=== PATIENT | male | born 1970 | race Two or more races ===

== ENCOUNTER 2024-09-03 02:03 | Observation (INO) ==
[2024-09-03 02:33] LABS: Basophils # (auto) 0.03 K/uL (0.00-0.20); Basophils % (auto) 0.3 %; Eosinophils # (auto) 0.04 K/uL (0.00-0.50); Eosinophils % (auto) 0.4 %; Hematocrit (blood only) 45.4 % (42.0-52.0); Hemoglobin 15.4 g/dl (14.0-18.0); Immature Granulocytes # (auto) 0.05 K/uL (0.01-0.20); Immature Granulocytes % (auto) 0.6 %; Lymphocytes # (auto) 2.36 K/uL (1.20-3.40); Mean Corpuscular Hemoglobin 28.3 pg (25.0-34.0); Mean Corpuscular Hgb Conc 33.9 g/dL (32.0-36.0); Mean Corpuscular Volume 83.5 fL (80.0-100.0); Monocytes # (auto) 0.57 K/uL (0.11-0.59); Monocytes % (auto) 6.3 %; Neutrophils # (auto) 6.02 K/uL (1.40-6.50); Neutrophils % (auto) 66.4 %; Platelet Count 199 K/uL (130-400); RDW Coefficient of Variation 13.2 % (11.5-14.5); RDW Standard Deviation 40.4 fL (36.4-46.3); Red Blood Count 5.44 M/uL (4.70-6.10); White Blood Count 9.07 K/ul (4.8-10.8)
[2024-09-03 02:47] LABS: Albumin Globulin Ratio 1.3 (0.9-2); Albumin Level 4.2 gm/dl (3.4-5.0); BUN Creatinine Ratio 14.3 (10-20); Calcium 9.4 mg/dl (8.6-10.3); Creatinine Clr Calc Pharmacy 86.4 ml/min; Globulin 3.3 gm/dl (2.5-4.0); Magnesium 2.1 mg/dl (1.7-2.4); Potassium 3.9 mmol/L (3.5-5.1); Total Protein 7.5 gm/dl (6.0-8.3)
[2024-09-03 02:52] LABS: Troponin I High Sensitivity 3.1 pg/ml (0-20)
[2024-09-03 03:02] LABS: Thyroid Stimulating Hormone 2.579 uIu/ml (0.300-4.500)
[2024-09-03] MEDS: PANTOprazole 40 MG/10 ML SYR IV ONE (03:09)
[2024-09-03] MEDS: ACETAMINOPHEN 1,000 MG/100 ML VIAL IV STA (03:09)
[2024-09-03 03:14] LABS: INR 0.9 (0.9-1.1); Prothrombin Time 10.3 Seconds (9.0-12.0)
--- NOTE | 2024-09-03 04:00 | Emergency Department Note ---
Impression & Plan Abdominal pain, Transaminitis ED Provider Note ED Provider Note NAME: ADAM RICHARDSON AGE:54 SEX: Male : 1970 ARRIVES VIA: Private vehicle INFORMANT: Patient ED PROVIDER(s): Lexy Chilel DO CHIEF COMPLAINT: Abdominal pain HPI: This is a 54-year-old male presents emergency department due to concern for upper abdominal pain. Patient states over the last several months he has had intermittent episodes however they will typically resolve either spontaneously or after dose of Tylenol. He states this evening the pain began and did not improve, he took Tylenol around 930 and the pain persisted. He states it does radiate into his back. Patient states 3 years ago he did undergo EGD and colonoscopy, he was diagnosed with H. pylori and did take the full course of treatment for this. He had had no recurrent symptoms of heartburn/reflux recently. He states he has not been able to pinpoint that these episodes correlate with food. No recent change in his diet. No known sick contacts. No new medications. He denies fevers or chills, nausea or vomiting. He denies any accompanying chest pain or shortness of breath. PAST MEDICAL HISTORY:See Below PAST SURGICAL HISTORY:See Below FAMILY HISTORY:See Below SOCIAL HISTORY:See Below HOME MEDICATIONS:See Below ALLERGIES:See Below VITALS:See Below PHYSICAL EXAMINATION: GENERAL: alert, well appearing, well nourished, no distress, non-toxic EYE EXAM: normal conjunctiva, PERRL and EOM's grossly intact OROPHARYNX: no exudate, no erythema, lips, buccal mucosa, and tongue normal and mucous membranes are moist NECK: supple, no nuchal rigidity, no adenopathy, non-tender LUNGS: Clear to auscultation. Normal chest wall mechanics, no w/r/r HEART: no murmurs, S1 normal and S2 normal ABDOMEN: abdomen soft, epigastric abdominal pain with palpation, normo-active bowel sounds, no masses, no rebound or guarding. BACK: Back is symmetrical on inspection and there is no deformity, no midline tenderness, no CVA tenderness. SKIN: no rashes, petechiae, orbruising UPPER EXTREMITIES: upper extremities are grossly normal. FROM, nml pulses b/l. LOWER EXTREMITIES: No pitting edema. FROM, nml pulses b/l. NEURO EXAM: Normal sensorium, cranial nerves II-XII grossly intact, normal speech, no facial droop,nogross weakness of arms, no gross weakness of legs. Gross sensation intact. No ataxia. Vital Signs: reviewed and remarkable Differential Diagnosis: PUD, cholecystitis, pancreatitis, colitis, bowel obstruction, perforation, GI bleed, ACS, dissection, AAA, viral syndrome, as well as others were considered MEDICAL DECISION MAKING: This is a 54-year-old male presents emergency room due to concern for epigastric pain. Patient with prior intermittent episodes however typically short-lived. Episode tonight has been lasting longer and persistent despite oral Tylenol at home. He was afebrile and hemodynamically stable on arrival. Labs drawn and sent, IV established, EKG performed at bedside interpreted me and patient monitored on telemetry. After discussion of symptoms and differential diagnosis initially bedside we opted to start with an ultrasound of the right upper quadrant. Stones and sludge were noted however no definitive evidence of acute cholecystitis. After the further discussion of differential diagnosis as well as his prior surgical history, we performed a CT of the abdomen and pelvis additionally. Patient's labs reassuring with the exception of a mild transaminitis. No other evidence of acute intra-abdominal infection, bowel obstruction, mesenteric ischemia, or acute vascular pathology. Patient was given IV Tylenol and IV fentanyl as well as IV Protonix for symptomatic control. He was given gentle IV fluid hydration additionally. Case discussed with on- call RYANN covering general surgery who did come and evaluate him at bedside. They recommend admission to the hospitalist team for further evaluation of the transaminitis prior to consideration for cholecystectomy. Case discussed with the hospitalist team for additional evaluation and management. Consultation(s): 0535: Discussed with Haris Jackson PA-C with gen surg. He came to see him at bedside. 0638: Discussed with Dr. Magana, [facility] hospitalist team, for additional evaluation and management. ER Treatment Provided: See below Diagnostics Interpreted By Me: -ECG: Normal sinus at 65, normal axis, normal intervals, no acute ST/T wave changes -Cardiac Monitoring: An order was placed for continuous cardiac monitoring. The monitor shows a rate of 68 with normal sinus rhythm. -Laboratory studies: As stated above and show below. -Imaging studies: CT a/p -no perfect, no SBO Triage Nursing Note Reviewed Prior/Outside Records Reviewed Past Med/Surg History Problem List (Updated 09/03/24 @ 14:30 by Pascual Curran MD) Cholelithiasis Transaminitis (Acute) Abdominal pain (Acute) Social History Smoking Status: Never smoker Hx Alcohol Use: No Hx Substance Use: No Preferred Language: Arabic Communication Ability: Effective [employer] Manager Required: No Beliefs That Will Affect Care: None Current Living Situation: Spouse Other Information That Helps Us Care for You: No Feels Safe at Home: Yes Safety Concerns: Feels Safe At This Time Assistive Devices: None Allergies Allergies Allergy/AdvReac Type Severity Reaction Status Date / Time No Known Allergies Allergy Unverified 09/03/24 05:54 Home Meds Home Medications Medication Instructions Recorded Confirmed Centrum Adult 50 Plus See Rx Instructions .Route .COMPLEX 09/03/24 09/03/24 calcium 500 mg 1 tab PO 1XD 09/03/24 09/03/24 (carb,gluconate)-magnesium 250 mg (gluc,oxide) tablet (Calcium Magnesium) levothyroxine 50 mcg tablet 50 mcg PO 1XD 09/03/24 09/03/24 Results & Data (ED) Vital Signs Vital Signs - 24 hr 09/03/24 02:05 09/03/24 02:14 09/03/24 04:04 Temperature 36.5 C Temperature Source Temporal Artery Scan Pulse Rate 69 66 Pulse Rate [Radial] 67 Respiratory Rate 18 17 Respiratory Effort / Characteristics Non-Labored Non-Labored Spontaneous Respiratory Depth Normal Normal Respiratory Pattern Regular Blood Pressure 162/96 H Blood Pressure [Left Arm] 110/68 Blood Pressure Mean 118 Blood Pressure Mean [Left Arm] 82 Pulse Oximetry 98 94 Oxygen Delivery Method Room Air Room Air Sepsis Recent Fever Within 48 Hours No Sepsis New/Unexplained Change in Mental Status N/A Sepsis Action Taken by Nursing No Action Required 09/03/24 06:00 Temperature Temperature Source Pulse Rate Pulse Rate [Radial] 76 Respiratory Rate 17 Respiratory Effort / Characteristics Non-Labored Spontaneous Respiratory Depth Normal Respiratory Pattern Regular Blood Pressure Blood Pressure [Left Arm] 120/79 Blood Pressure Mean Blood Pressure Mean [Left Arm] 92 Pulse Oximetry 97 Oxygen Delivery Method Room Air Sepsis Recent Fever Within 48 Hours Sepsis New/Unexplained Change in Mental Status Sepsis Action Taken by Nursing Laboratory Data 09/03/24 02:17 09/03/24 02:17 Lab Results 09/03/24 Range/Units 02:17 WBC 9.07 (4.8-10.8) K/ul RBC 5.44 (4.70-6.10) M/uL Hgb 15.4 (14.0-18.0) g/dl Hct 45.4 (42.0-52.0) % MCV 83.5 (80.0-100.0) fL MCH 28.3 (25.0-34.0) pg MCHC 33.9 (32.0-36.0) g/dL RDW Std Deviation 40.4 (36.4-46.3) fL RDW Coeff of Zeeshan 13.2 (11.5-14.5) % Plt Count 199 (130-400) K/uL MPV 11.0 (9.4-12.4) fL Immature Gran % (Auto) 0.6 % Neut % (Auto) 66.4 % Lymph % (Auto) 26.0 % Victoria % (Auto) 6.3 % Eos % (Auto) 0.4 % Baso % (Auto) 0.3 % Neut # (Auto) 6.02 (1.40-6.50) K/uL Lymph # (Auto) 2.36 (1.20-3.40) K/uL Victoria # (Auto) 0.57 (0.11-0.59) K/uL Eos # (Auto) 0.04 (0.00-0.50) K/uL Baso # (Auto) 0.03 (0.00-0.20) K/uL Immature Gran # (Auto) 0.05 (0.01-0.20) K/uL PT 10.3 (9.0-12.0) Seconds INR 0.9 (0.9-1.1) Sodium 139 (136-145) mmol/L Potassium 3.9 (3.5-5.1) mmol/L Chloride 105 (98-107) mmol/L Carbon Dioxide 29 (21-32) mmol/L Anion Gap 5 (3-11) BUN 15 (6-23) mg/dl Creatinine 1.05 (0.6-1.4) mg/dl Est Cr Clr Drug Dosing 86.4 ml/min eGFR 84.35 BUN/Creatinine Ratio 14.3 (10-20) Glucose 111 H (70-99(Fasting)) mg/dl Estimat Average Glucose TNP Hemoglobin A1c TNP Hgb A1c Pathologist Com Calcium 9.4 (8.6-10.3) mg/dl Magnesium 2.1 (1.7-2.4) mg/dl Total Bilirubin 1.0 (0.2-1.0) mg/dl Direct Bilirubin 0.4 H (0-0.2) mg/dl AST 198 H (13-39) U/L ALT 136 H (7-52) U/L Alkaline Phosphatase 81 (34-104) U/L Troponin I High Sens 3.1 (0-20) pg/ml Total Protein 7.5 (6.0-8.3) gm/dl Albumin 4.2 (3.4-5.0) gm/dl Globulin 3.3 (2.5-4.0) gm/dl Albumin/Globulin Ratio 1.3 (0.9-2) Lipase 30 (11-82) U/L TSH 2.579 (0.300-4.500) uIu/ml Administered Medications Levothyroxine Sodium (Levothyroxine Sodium 50 Mcg Tablet) 50 mcg PO DAILYBB SIERRA Stop: 10/03/24 11:29 Last Admin: 09/03/24 12:19 Dose: 50 mcg Documented By: NEHEMIAS Multivitamins (Multivitamin Tab) 1 tab PO QAM SIERRA Stop: 10/03/24 08:59 Last Admin: 09/03/24 12:20 Dose: Not Given Documented By: NEHEMIAS Discontinued Medications Fentanyl Citrate (Fentanyl Citrate Pf 100 Mcg/2 Ml Vial) 50 mcg IV Q15M PRN PRN Reason: Pain Stop: 09/17/24 02:54 Last Admin: 09/03/24 04:45 Dose: 50 mcg Documented By: GONZALEZ Pantoprazole Sodium (Protonix) 40 mg in 10 mls @ 5 mls/min IV NOW ONE Stop: 09/03/24 02:20 Last Admin: 09/03/24 03:09 Dose: 5 mls/min Documented By: GONZALEZ Acetaminophen (Ofirmev) 1,000 mg in 100 mls @ 400 mls/hr IV NOW STA Stop: 09/03/24 03:08 Last Infusion: 09/03/24 03:27 Dose: Infused Documented By: Admin: 09/03/24 03:09 Dose: 400 mls/hr Documented By: GONZALEZ Sodium Chloride (Nss) 1,000 mls @ 75 mls/hr IV .[id number] ONE Stop: 09/03/24 20:49 Last Infusion: 09/04/24 00:50 Dose: Infused Documented By: Admin: 09/03/24 10:17 Dose: 75 mls/hr Documented By: Ioversol (Optiray 320 100ml) 100 ml IV ONCE ONE Stop: 09/03/24 05:30 Last Admin: 09/03/24 05:29 Dose: 93 ml Documented By: EFRAIN Imaging Data Radiologist's Impression: Abdomen Ultrasound 09/03/24 02:54 EXAM: US abdomen limited CLINICAL HISTORY: TECHNIQUE: Doppler ultrasound examination of the limited abdomen performed in real-time. COMPARISON: None. FINDINGS: Limited examination due to increased midline bowel gas. The pancreas is not visualized due to overlying bowel gas. The liver is seen of average size measuring 15.7 cm with increased parenchymal echogenicity. No intrahepatic biliary dilatation. No focal lesion seen within the liver. The gallbladder is seen distended with a large stone seen within. Mobile sludge is also noted. Gallbladder wall thickness is normal measuring 1.9 mm. Negative Jones sign. Comet tail appearance artifact along the fundal wall caused by the shaowing of the stone. The common bile duct is not dilated measuring 5.2 mm. The right kidney is seen unremarkable. No hydronephrosis or stones seen within. IMPRESSION: 1. Fatty liver infiltration. 2. Cholelithiasis with no signs of acute cholecystitis. Mobile sludge was also seen within the gallbladder. As per images focal areas of wall thickening is noted, could represent polyp. 3. Pancreas not visualized with overlying bowel gas. 4. Clinical correlation is needed. Electronically signed by Alexandro Walters 09-03-2024 05:02 AM Abdomen/Pelvis CT 09/03/24 05:14 EXAM: CT abd pelvis IV con only CLINICAL HISTORY: epigastric abd pain, hx hiatal hernia, 93 ml optiray 320 TECHNIQUE: Multiple contiguous axial images were obtained from the level of diaphragm to the pubis symphysis. This study was acquired after the IV administration of iodinated contrast material, given the patient's indications for the examination. If IV contrast material had not been administered, the likelihood of detecting abnormalities relevant to the patient's condition would have been substantially decreased. Coronal and sagittal reformatted images were generated and reviewed to improve anatomic localization and optimize lesion detection. CT scan was performed according to ALARA (as low as reasonably achievable). COMPARISON: None. FINDINGS: The visualized lung bases are clear. ABDOMEN/PELVIS: The liver is normal in size and attenuation. No focal liver lesions are seen. There is no intra or extrahepatic biliary ductal dilatation. Hepatic vasculature is patent. Gallbladder is well distended. 2.2 x 1.9 cm hyperdense lesion is noted within the body of the gallbladder. The spleen, pancreas, and adrenal glands are unremarkable. The kidneys are normal in size and attenuation. There is no hydronephrosis or perinephric fat stranding. No renal calculi or renal masses are identified. The ureters are normal in caliber and no ureteral calculi are seen. The bladder is normal in contour. No evidence of focal or diffuse bowel wall thickening or evidence of bowel obstruction is seen. The appendix is visualized in the right lower quadrant and appears within normal limits. Mild mesenteric fat stranding is noted with reactive mesenteric lymph nodes. Thickening of the gastric rugae is noted. Mild prostatomegaly is noted measuring 3.5 x 5.1 x 4.6 cm (AP x TR x CC). No adenopathy or fluid collections are seen. The aorta is normal in caliber. No aggressive appearing osseous lesions are identified. IMPRESSION: 1. Mild mesenteric fat stranding is noted with reactive mesenteric lymph nodes and mild fluid. Findings suggestive of mesenteric panniculitis. 2. Thickening of the gastric rugae is noted, suggestive of gastritis. 3. 2.2 x 1.9 cm hyperdense lesion is noted within the body of the gallbladder- This could represent calculus or polyp- for USG correlation. 4. Mild prostatomegaly is noted measuring 3.5 x 5.1 x 4.6 cm (AP x TR x CC). Electronically signed by Gómez Ingram 09-03-2024 06:19 AM Discharge Plan Visit Data Chief Complaint: Chest Pain Stated Complaint: CHEST/ABD PAIN ED Provider: Lexy Chilel Discharge Problem: Abdominal pain, Transaminitis Patient Disposition: Admitted As Inpatient Discharge Instructions Interventions: ED Discharge Assessment Last Done: 09/03/24 11:21 Discharge Problem: Abdominal pain Qualifiers: Abdominal location: upper abdomen, unspecified Qualified Code(s): R10.10 - Upper abdominal pain, unspecified
[2024-09-03] MEDS: fentaNYL citrate PF 100 MCG/2 ML VIAL IV PRN (04:45)
--- NOTE | 2024-09-03 05:03 | Ultrasound Report ---
EXAM: US abdomen limited CLINICAL HISTORY: TECHNIQUE: Doppler ultrasound examination of the limited abdomen performed in real-time. COMPARISON: None. FINDINGS: Limited examination due to increased midline bowel gas. The pancreas is not visualized due to overlying bowel gas. The liver is seen of average size measuring 15.7 cm with increased parenchymal echogenicity. No intrahepatic biliary dilatation. No focal lesion seen within the liver. The gallbladder is seen distended with a large stone seen within. Mobile sludge is also noted. Gallbladder wall thickness is normal measuring 1.9 mm. Negative Jones sign. Comet tail appearance artifact along the fundal wall caused by the shaowing of the stone. The common bile duct is not dilated measuring 5.2 mm. The right kidney is seen unremarkable. No hydronephrosis or stones seen within. IMPRESSION: 1. Fatty liver infiltration. 2. Cholelithiasis with no signs of acute cholecystitis. Mobile sludge was also seen within the gallbladder. As per images focal areas of wall thickening is noted, could represent polyp. 3. Pancreas not visualized with overlying bowel gas. 4. Clinical correlation is needed. Electronically signed by Alexandro Walters 09-03-2024 05:02 AM
[2024-09-03] MEDS: OPTIRAY 320 100ml IV ONE (05:29)
--- NOTE | 2024-09-03 05:58 | Surgery Consultation ---
Date of Consultation September 03, 2024 Assessment & Plan (1) Transaminitis: I discussed with the treating emergency room physician the patient is being admitted on the hospital service. From surgery perspective we recommend the following: Provide analgesics Provide antiemetics Implement n.p.o. status Would recommend repeating the LFTs later this morning to see if they are resolving or worsening. If the patient has worsening LFTs consideration should be given to obtaining a GI consult The patient has resolving LFTs will then have discussed with the patient possibility of cholecystectomy whether this should be pursued on an inpatient or outpatient/semielective basis Additional recommendations will be forthcoming based on his clinical course as unfolds Supervising Physician Co-Signing Physician Notes Patient discussed with Haris Jackson overnight, labs and imaging reviewed, agree with above. Admitted with cholelithiasis with some mild elevation in his LFTs. For full assessment and plan, see today's progress note. History of Present Illness Reason for Consultation: Abdominal pain History of Present Illness This is a 54-year-old male who presented emergency department secondary to abdominal pain. Patient notes that for the past year he has been having some episodes of epigastric pain and right upper quadrant pain after eating. He notes over the past 2 to 3 days this has increased in frequency and severity prompting his visit to the emergency department. He has had nausea without vomiting. He denies any fevers, shakes, or chills. No other modifying factors are noted to his pain. He has had prior surgery in the form of a laparoscopic Kristen fundoplication. Since arrival to hospital patient has had labs and imaging which I independent reviewed. A gallbladder ultrasound that showed the patient had a distended gallbladder with a large gallstone along with some mobile sludge noted. There is no gallbladder wall thickening. There is no biliary ductal dilatation. The interpreting radiologist did not feel that this represented cholecystitis. Labs included CBC white blood cell count, hemoglobin, hematocrit, and platelet count were normal. Coagulation studies were normal. Chemistry profile showed sodium and potassium as well as the BUN and creatinine were normal. There is no elevation of the bilirubin or alkaline phosphatase but the AST and ALT were elevated at 198 and 136. There is no elevation of lipase. At the time of my interview he was resting comfortably in bed and he was in no distress. Allergies Allergy/AdvReac Type Severity Reaction Status Date / Time No Known Allergies Allergy Unverified 09/03/24 05:54 Home Medications Medication Instructions Recorded Confirmed Type Centrum Adult 50 Plus See Rx Instructions .Route .COMPLEX 09/03/24 09/03/24 History calcium 500 mg 1 tab PO 1XD 09/03/24 09/03/24 History (carb,gluconate)-magnesium 250 mg (gluc,oxide) tablet (Calcium Magnesium) levothyroxine 50 mcg tablet 50 mcg PO 1XD 09/03/24 09/03/24 History Patient History Social History Smoking Status: Never smoker Hx Alcohol Use: No Hx Substance Use: No Preferred Language: Congolese Communication Ability: Effective 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 Beliefs That Will Affect Care: None Current Living Situation: Spouse Other Information That Helps Us Care for You: No Feels Safe at Home: Yes Safety Concerns: Feels Safe At This Time Assistive Devices: None Review of Systems Review of Systems: All systems reviewed & are unremarkable except as noted in HPI & below Physical Exam Constitutional: WD/WN, vitals as above Eyes: + anicteric sclerae ENMT: Ears: no hearing impairment and no external ear abnormality No sublingual jaundice noted Neck: trachea midline Respiratory: normal respiratory effort, lungs clear to auscultation Cardiovascular: Rate/Rhythm: regular rate and regular rhythm Gastrointestinal (Abdomen): At the time of my exam patient's abdomen is soft and nondistended. There is minimal to no pain with palpation there is no rebound tenderness or guarding Musculoskeletal: No calf tenderness Skin: no rashes Neurologic: moves all extremities Psychiatric: A+Ox3, euthymic affect Results & Data Vital Signs (Past 12 Hours) Vital Signs Temp Pulse Pulse Resp BP BP Pulse Ox 09/03/24 04:04 67 17 110/68 94 09/03/24 02:14 66 09/03/24 02:05 36.5 C 69 18 162/96 H 98 O2 Del Method 09/03/24 04:04 Room Air 09/03/24 02:14 09/03/24 02:05 Room Air PG Care Time/CCT Total # of Minutes Spent Total Time Spent with Patient: Total time spent is greater than 50% in coordination of care (as documented) at patient's floor/unit and/or counseling patient: Coding Level of Care Code 92528 IN/OBS CONSULT LVL 5,80M Diagnoses Transaminitis R74.01
--- NOTE | 2024-09-03 06:19 | CT Scan Report ---
EXAM: CT abd pelvis IV con only CLINICAL HISTORY: epigastric abd pain, hx hiatal hernia, 93 ml optiray 320 TECHNIQUE: Multiple contiguous axial images were obtained from the level of diaphragm to the pubis symphysis. This study was acquired after the IV administration of iodinated contrast material, given the patient's indications for the examination. If IV contrast material had not been administered, the likelihood of detecting abnormalities relevant to the patient's condition would have been substantially decreased. Coronal and sagittal reformatted images were generated and reviewed to improve anatomic localization and optimize lesion detection. CT scan was performed according to ALARA (as low as reasonably achievable). COMPARISON: None. FINDINGS: The visualized lung bases are clear. ABDOMEN/PELVIS: The liver is normal in size and attenuation. No focal liver lesions are seen. There is no intra or extrahepatic biliary ductal dilatation. Hepatic vasculature is patent. Gallbladder is well distended. 2.2 x 1.9 cm hyperdense lesion is noted within the body of the gallbladder. The spleen, pancreas, and adrenal glands are unremarkable. The kidneys are normal in size and attenuation. There is no hydronephrosis or perinephric fat stranding. No renal calculi or renal masses are identified. The ureters are normal in caliber and no ureteral calculi are seen. The bladder is normal in contour. No evidence of focal or diffuse bowel wall thickening or evidence of bowel obstruction is seen. The appendix is visualized in the right lower quadrant and appears within normal limits. Mild mesenteric fat stranding is noted with reactive mesenteric lymph nodes. Thickening of the gastric rugae is noted. Mild prostatomegaly is noted measuring 3.5 x 5.1 x 4.6 cm (AP x TR x CC). No adenopathy or fluid collections are seen. The aorta is normal in caliber. No aggressive appearing osseous lesions are identified. IMPRESSION: 1. Mild mesenteric fat stranding is noted with reactive mesenteric lymph nodes and mild fluid. Findings suggestive of mesenteric panniculitis. 2. Thickening of the gastric rugae is noted, suggestive of gastritis. 3. 2.2 x 1.9 cm hyperdense lesion is noted within the body of the gallbladder- This could represent calculus or polyp- for USG correlation. 4. Mild prostatomegaly is noted measuring 3.5 x 5.1 x 4.6 cm (AP x TR x CC). Electronically signed by Gómez Ingram 09-03-2024 06:19 AM
--- NOTE | 2024-09-03 07:21 | History & Physical Report ---
Date of Service September 03, 2024 Assessment & Plan (1) Abdominal pain: Plan: Biliary colic versus cholecystitis with associated transaminitis No sepsis for now Hypothyroidism, euthyroid as of today's TSH Hyperglycemia rule out DM OBS [facility] General Surgery consult (Patient already seen at the ED by provider who recommends trending LFTs and GI consult if with further elevation.) Recheck LFTs at 10 AM Further management contingent on LFTs trend N.p.o. for now Check hemoglobin A1c DVT prophylaxis. SCDs re: possible procedure Full code Patient requesting for selective testing given out of state insurance concerns. Text document was generated using amazingtunes recognition software. It may contain grammatical or spelling errors. Kindly contact undersigned for clarification of any documentation item in question. History of Present Illness Chief Complaint: Abdominal pain Primary Care Provider: Dr. Rebecca Olivera from [place], [place] History obtained from patient and records. Patient is a resident of [place], [place] who has been in town the last 10 days to visit his daughter who is a [employer] grad student. Medical history significant for hypothyroidism. One year history of intermittent right upper quadrant pain usually worse after eating and fatty food intake. No fever no chills. Symptoms spontaneously resolving. Different from heartburn. No consultations done. Symptoms more frequent of late as per patient. Last night, episode more intense and protracted. No fever, no chills. No chest pain, no SOB. Patient consulted ER for evaluation. 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 [place] Allergies Allergy/AdvReac Type Severity Reaction Status Date / Time No Known Allergies Allergy Unverified 09/03/24 05:54 Home Medications Medication Instructions Recorded Confirmed Type Centrum Adult 50 Plus See Rx Instructions .Route .COMPLEX 09/03/24 09/03/24 History calcium 500 mg 1 tab PO 1XD 09/03/24 09/03/24 History (carb,gluconate)-magnesium 250 mg (gluc,oxide) tablet (Calcium Magnesium) levothyroxine 50 mcg tablet 50 mcg PO 1XD 09/03/24 09/03/24 History Past Med/Surg History Problem List Transaminitis (Acute) Abdominal pain (Acute) Social History Smoking Status: Never smoker Preferred Language: Canadian Feels Safe at Home: Yes Review of Systems Review of Systems: As per HPI, all other systems reviewed and negative Physical Exam Physical Exam: GENERAL: Comfortable, obese, pleasant, no respiratory distress SKIN: Normal color, warm HEENT: Alopecia, [place] palpebral conjunctivae, no ptosis, dry buccal mucosa NECK : Supple, no tenderness CHEST : CTA, no tenderness HEART : RRR, no obvious murmurs ABDOMEN: Some distention, epigastric tenderness EXTREMITIES : No LE swelling/tenderness, no other conspicuous deformities noted NEUROLOGIC : Coherent, no facial asymmetry, no other gross focality Results & Data Results & Data Vital Signs (Past 12 Hours) Vital Signs Temp Pulse Pulse Resp BP BP Pulse Ox 09/03/24 06:00 76 17 120/79 97 09/03/24 04:04 67 17 110/68 94 09/03/24 02:14 66 09/03/24 02:05 36.5 C 69 18 162/96 H 98 O2 Del Method 09/03/24 06:00 Room Air 09/03/24 04:04 Room Air 09/03/24 02:14 09/03/24 02:05 Room Air Laboratory Results Laboratory Results WBC 9.07 K/ul (4.8-10.8) 09/03/24 02:17 RBC 5.44 M/uL (4.70-6.10) 09/03/24 02:17 Hgb 15.4 g/dl (14.0-18.0) 09/03/24 02:17 Hct 45.4 % (42.0-52.0) 09/03/24 02:17 MCV 83.5 fL (80.0-100.0) 09/03/24 02:17 MCH 28.3 pg (25.0-34.0) 09/03/24 02:17 MCHC 33.9 g/dL (32.0-36.0) 09/03/24 02:17 RDW Std Deviation 40.4 fL (36.4-46.3) 09/03/24 02:17 RDW Coeff of Zeeshan 13.2 % (11.5-14.5) 09/03/24 02:17 Plt Count 199 K/uL (130-400) 09/03/24 02:17 MPV 11.0 fL (9.4-12.4) 09/03/24 02:17 Immature Gran % (Auto) 0.6 % 09/03/24 02:17 Neut % (Auto) 66.4 % 09/03/24 02:17 Lymph % (Auto) 26.0 % 09/03/24 02:17 Emmet % (Auto) 6.3 % 09/03/24 02:17 Eos % (Auto) 0.4 % 09/03/24 02:17 Baso % (Auto) 0.3 % 09/03/24 02:17 Neut # (Auto) 6.02 K/uL (1.40-6.50) 09/03/24 02:17 Lymph # (Auto) 2.36 K/uL (1.20-3.40) 09/03/24 02:17 Emmet # (Auto) 0.57 K/uL (0.11-0.59) 09/03/24 02:17 Eos # (Auto) 0.04 K/uL (0.00-0.50) 09/03/24 02:17 Baso # (Auto) 0.03 K/uL (0.00-0.20) 09/03/24 02:17 Immature Gran # (Auto) 0.05 K/uL (0.01-0.20) 09/03/24 02:17 PT 10.3 Seconds (9.0-12.0) 09/03/24 02:17 INR 0.9 (0.9-1.1) 09/03/24 02:17 Sodium 139 mmol/L (136-145) 09/03/24 02:17 Potassium 3.9 mmol/L (3.5-5.1) 09/03/24 02:17 Chloride 105 mmol/L (98-107) 09/03/24 02:17 Carbon Dioxide 29 mmol/L (21-32) 09/03/24 02:17 Anion Gap 5 (3-11) 09/03/24 02:17 BUN 15 mg/dl (6-23) 09/03/24 02:17 Creatinine 1.05 mg/dl (0.6-1.4) 09/03/24 02:17 Est Cr Clr Drug Dosing 86.4 ml/min 09/03/24 02:17 eGFR 84.35 09/03/24 02:17 BUN/Creatinine Ratio 14.3 (10-20) 09/03/24 02:17 Glucose 111 mg/dl (70-99(Fasting)) H 09/03/24 02:17 Calcium 9.4 mg/dl (8.6-10.3) 09/03/24 02:17 Magnesium 2.1 mg/dl (1.7-2.4) 09/03/24 02:17 Total Bilirubin 1.0 mg/dl (0.2-1.0) 09/03/24 02:17 AST 198 U/L (13-39) H 09/03/24 02:17 ALT 136 U/L (7-52) H 09/03/24 02:17 Alkaline Phosphatase 81 U/L (34-104) 09/03/24 02:17 Troponin I High Sens 3.1 pg/ml (0-20) 09/03/24 02:17 Total Protein 7.5 gm/dl (6.0-8.3) 09/03/24 02:17 Albumin 4.2 gm/dl (3.4-5.0) 09/03/24 02:17 Globulin 3.3 gm/dl (2.5-4.0) 09/03/24 02:17 Albumin/Globulin Ratio 1.3 (0.9-2) 09/03/24 02:17 Lipase 30 U/L (11-82) 09/03/24 02:17 TSH 2.579 uIu/ml (0.300-4.500) 09/03/24 02:17 Impressions Abdomen Ultrasound 09/03/24 02:54 EXAM: US abdomen limited CLINICAL HISTORY: TECHNIQUE: Doppler ultrasound examination of the limited abdomen performed in real-time. COMPARISON: None. FINDINGS: Limited examination due to increased midline bowel gas. The pancreas is not visualized due to overlying bowel gas. The liver is seen of average size measuring 15.7 cm with increased parenchymal echogenicity. No intrahepatic biliary dilatation. No focal lesion seen within the liver. The gallbladder is seen distended with a large stone seen within. Mobile sludge is also noted. Gallbladder wall thickness is normal measuring 1.9 mm. Negative Jones sign. Comet tail appearance artifact along the fundal wall caused by the shaowing of the stone. The common bile duct is not dilated measuring 5.2 mm. The right kidney is seen unremarkable. No hydronephrosis or stones seen within. IMPRESSION: 1. Fatty liver infiltration. 2. Cholelithiasis with no signs of acute cholecystitis. Mobile sludge was also seen within the gallbladder. As per images focal areas of wall thickening is noted, could represent polyp. 3. Pancreas not visualized with overlying bowel gas. 4. Clinical correlation is needed. Electronically signed by Alexandro Walters 09-03-2024 05:02 AM Abdomen/Pelvis CT 09/03/24 05:14 EXAM: CT abd pelvis IV con only CLINICAL HISTORY: epigastric abd pain, hx hiatal hernia, 93 ml optiray 320 TECHNIQUE: Multiple contiguous axial images were obtained from the level of diaphragm to the pubis symphysis. This study was acquired after the IV administration of iodinated contrast material, given the patient's indications for the examination. If IV contrast material had not been administered, the likelihood of detecting abnormalities relevant to the patient's condition would have been substantially decreased. Coronal and sagittal reformatted images were generated and reviewed to improve anatomic localization and optimize lesion detection. CT scan was performed according to ALARA (as low as reasonably achievable). COMPARISON: None. FINDINGS: The visualized lung bases are clear. ABDOMEN/PELVIS: The liver is normal in size and attenuation. No focal liver lesions are seen. There is no intra or extrahepatic biliary ductal dilatation. Hepatic vasculature is patent. Gallbladder is well distended. 2.2 x 1.9 cm hyperdense lesion is noted within the body of the gallbladder. The spleen, pancreas, and adrenal glands are unremarkable. The kidneys are normal in size and attenuation. There is no hydronephrosis or perinephric fat stranding. No renal calculi or renal masses are identified. The ureters are normal in caliber and no ureteral calculi are seen. The bladder is normal in contour. No evidence of focal or diffuse bowel wall thickening or evidence of bowel obstruction is seen. The appendix is visualized in the right lower quadrant and appears within normal limits. Mild mesenteric fat stranding is noted with reactive mesenteric lymph nodes. Thickening of the gastric rugae is noted. Mild prostatomegaly is noted measuring 3.5 x 5.1 x 4.6 cm (AP x TR x CC). No adenopathy or fluid collections are seen. The aorta is normal in caliber. No aggressive appearing osseous lesions are identified. IMPRESSION: 1. Mild mesenteric fat stranding is noted with reactive mesenteric lymph nodes and mild fluid. Findings suggestive of mesenteric panniculitis. 2. Thickening of the gastric rugae is noted, suggestive of gastritis. 3. 2.2 x 1.9 cm hyperdense lesion is noted within the body of the gallbladder- This could represent calculus or polyp- for USG correlation. 4. Mild prostatomegaly is noted measuring 3.5 x 5.1 x 4.6 cm (AP x TR x CC). Electronically signed by Gómez Ingram 09-03-2024 06:19 AM Diagnostic Findings EKG as per my interpretation :Rate 65, NSR, normal axis, no ischemia
[2024-09-03] MEDS ORDERED: LORazepam 0.5 MG TAB PO PRN (07:30)
[2024-09-03] MEDS ORDERED: MoRPHine SULFATE 4 MG/ML 1 ML CARP\\VIAL IV PRN ×2 (07:30→08:33)
[2024-09-03] MEDS ORDERED: PROMETHAZINE 6.25 MG/50.25 ML BAG IV PRN (07:30)
--- NOTE | 2024-09-03 07:36 | Electrocardiogram Report ---
Test Reason : Blood Pressure : */* mmHG Vent. Rate : 65 BPM Atrial Rate : 65 BPM P-R Int : 156 ms QRS Dur : 76 ms QT Int : 380 ms P-R-T Axes : 57 59 48 degrees QTcB Int : 395 ms Normal sinus rhythm Normal ECG No previous ECGs available Confirmed by Jose Webb ([id number]) on 09/03/2024 7:35:55 AM Referred By: REFERRED SELF Confirmed By: Jose Webb
[2024-09-03] MEDS: SODIUM CHLORIDE 0.9% 1,000 ML IV ONE (10:17)
[2024-09-03 10:24] LABS: Bilirubin Direct 0.4 mg/dl (0-0.2)
[2024-09-03 11:14] LABS: Albumin Level 3.9 gm/dl (3.4-5.0); Bilirubin Direct 0.2 mg/dl (0-0.2); Bilirubin,Total 1.1 mg/dl (0.2-1.0)
[2024-09-03] MEDS: LEVOTHYROXINE SODIUM 50 MCG TABLET PO SCH (12:19)
--- NOTE | 2024-09-03 12:19 | Surgery Progress Note ---
Date of Service September 03, 2024 Assessment & Plan (1) Transaminitis: Plan: Patient here with abdominal pain and findings of cholelithiasis/mobile sludge on imaging. No concern for cholecystitis noted, but pt did present with slightly elevated transaminases WBC 9, LFTs rechecked later this AM show Tb 1.1 (1), AST 330 (198), ALT 351 (136), Db 0.2 (0.4). Vital signs are stable US showed a non-dilated common bile duct Patient tender in epigastric region Discussed options with patient regarding obtaining an MRCP (which at the earliest cannot be performed until 7pm tonight per radiology) vs. consideration of lap leanna today and trend LFTs tomorrows At this time pt opting for cholecystectomy with trending of labs post op. will tentatively add patient on to the OR schedule. will discuss with dr. mckay if LFTs up again tomorrow will need MRCP and GI consideration of ercp (2) Cholelithiasis: Admission and Anticipated Discharge Date Admission Date: September 03, 2024 Supervising Physician Co-Signing Physician Notes Patient seen and examined, labs reviewed, agree with above. Admitted with cholelithiasis with large gallstone along with some mild elevation in his LFTs. After admission his labs were repeated and his bilirubin was up to 1.1 his AST and ALT were up slightly. After discussion of his options, the patient elected for MRCP which will be performed this evening. He is send we have been placed on the OR schedule for tomorrow for robotic cholecystectomy. If the MRCP is positive then he would need to be transferred for ERCP. If the MRCP is negative he may have clear liquids, n.p.o. after midnight Subjective Patient reports ongoing intermittent epigastric pain. No n/v. otherwise doing fine. Physical Exam Physical Exam: awake/alert, no distress Gastrointestinal (Abdomen): Percussion/Palpation: + abdomen tender (epigastric discomfort to palpation ) and abdomen soft Results & Data Vital Signs (Past 12 Hours) Vital Signs Temp Pulse Pulse Resp BP BP Pulse Ox 09/03/24 11:21 63 17 122/78 96 09/03/24 10:16 60 16 125/78 96 09/03/24 06:00 76 17 120/79 97 09/03/24 04:04 67 17 110/68 94 11/20/24 02:14 66 09/03/24 02:05 97.7 F 69 18 162/96 H 98 O2 Del Method 09/03/24 11:21 Room Air 09/03/24 10:16 Room Air 09/03/24 06:00 Room Air 09/03/24 04:04 Room Air 09/03/24 02:14 09/03/24 02:05 Room Air PG Care Time/CCT Total # of Minutes Spent Total Time Spent with Patient: Total time spent is greater than 50% in coordination of care (as documented) at patient's floor/unit and/or counseling patient: Coding Level of Care Code 50377 SUB INP/OBS CARE 11/08MIN Diagnoses Transaminitis R74.01 Cholelithiasis K80.20
[2024-09-03] MEDS: MULTIVITAMIN TAB PO SCH (12:20)
--- NOTE | 2024-09-03 14:24 | Gastrointestinal Consultation ---
Date of Consultation September 03, 2024 Assessment & Plan (1) Cholelithiasis: (2) Transaminitis: (3) Abdominal pain: Symptoms are suggestive of symptomatic gallstones. Mild elevation of transaminases with nearly normal bilirubin and normal diameter common bile duct indicate low probability of choledocholithiasis. MRCP is ordered. Cholecystectomy scheduled for tomorrow. If MRCP demonstrates choledocholithiasis the patient will need to be transferred for ERCP. History of Present Illness Reason for Consultation: Abdominal pain, gallstones, elevated liver function test. Attending Physician: Estevan Oglesby MD History of Present Illness Recurrent upper abdominal pain. Last night admitted after sudden onset of upper abdominal pain that radiated to back. The pain started around 7 PM. He checked into the emergency room. He had nausea but no vomiting. Denies chills, fever, jaundice, dark urine. In the preceding weeks the patient had of epigastric/right upper quadrant pain which would last between 15 and 30 minutes. Abdominal ultrasound showed gallstones. Common bile duct measured 5.2 mm in diameter. Liver function test showed mild elevation of transaminases: AST/ALT 330/351, total bilirubin 1.1. Allergies Allergy/AdvReac Type Severity Reaction Status Date / Time No Known Allergies Allergy Unverified 09/03/24 05:54 Home Medications Medication Instructions Recorded Confirmed Type Centrum Adult 50 Plus See Rx Instructions .Route .COMPLEX 09/03/24 09/03/24 History calcium 500 mg 1 tab PO 1XD 09/03/24 09/03/24 History (carb,gluconate)-magnesium 250 mg (gluc,oxide) tablet (Calcium Magnesium) levothyroxine 50 mcg tablet 50 mcg PO 1XD 09/03/24 09/03/24 History Patient History Social History Smoking Status: Never smoker Hx Alcohol Use: No Hx Substance Use: No Preferred Language: Welsh Communication Ability: Effective Stripe Matcher Required: No Beliefs That Will Affect Care: None Current Living Situation: Spouse Other Information That Helps Us Care for You: No Feels Safe at Home: Yes Safety Concerns: Feels Safe At This Time Assistive Devices: None Review of Systems Review of Systems: Constitutional: Denies weight loss, chills, fever, fatigue. Respiratory: Denies cough, denies shortness of breath. Cardiovascular: Denies chest pain and palpitations. Gastrointestinal: As per history of present illness. Physical Exam Physical Exam: Constitutional: WD/WN, vitals as above Respiratory: normal respiratory effort, lungs clear to auscultation Cardiovascular: RRR, no murmur, no edema Gastrointestinal (Abdomen): normal bowel sounds, soft, mild upper abdominal tenderness. No hepatosplenomegaly. Neurological: Oriented x 3, grossly no focal abnormalities, speech is intact. Results & Data Vital Signs (Past 12 Hours) Vital Signs Temp Pulse Pulse Pulse Resp BP BP 09/03/24 13:30 36.5 C 60 18 09/03/24 12:57 59 L 16 09/03/24 11:21 63 17 122/78 09/03/24 10:16 60 16 125/78 09/03/24 06:00 76 17 120/79 09/03/24 04:04 67 17 110/68 BP Pulse Ox O2 Del Method 09/03/24 13:30 125/78 96 Room Air 09/03/24 12:57 126/78 98 Room Air 09/03/24 11:21 96 Room Air 09/03/24 10:16 96 Room Air 09/03/24 06:00 97 Room Air 09/03/24 04:04 94 Room Air PG Care Time/CCT Total # of Minutes Spent Total Time Spent with Patient: Total time spent is greater than 50% in coordination of care (as documented) at patient's floor/unit and/or counseling patient: Coding Level of Care Code 97977 IN/OBS CONSULT LVL 3,45M Diagnoses Cholelithiasis K80.20 Cholelithiasis location: gallbladder Cholecystitis presence: without cholecystitis Transaminitis R74.01 Pain of upper abdomen R10.10 Abdominal location: upper abdomen, unspecified (1) Cholelithiasis Cholelithiasis location: gallbladder Cholecystitis presence: without cholecystitis (3) Abdominal pain Abdominal location: upper abdomen, unspecified Qualified Code(s): R10.10 - Upper abdominal pain, unspecified
--- NOTE | 2024-09-03 14:28 | Communication Note ---
Date of Service: September 03, 2024 Patient seen and examined at bedside. He is comfortable; not in distress. He reports that the pain has resolved with IV morphine Vital signs are stable and he is afebrile. On physical examination; Constitutional: Alert oriented x 3; not in distress. Respiratory: Bilateral vesicular breath sound. Cardiovascular: RRR, no murmur, no edema Vessels: no JVD or carotid bruit Chest: normal inspection of chest Abdomen: Mild tenderness in right upper quadrant. Bowel sound present. Musculoskeletal: no cyanosis or clubbing, extremities motor strength 5/5 Skin: no rashes, warm and dry normal turgor Neurologic: PERRL, EOMI, accommodation nl, no face palsy, no dysarthria CN's II- XI intact bilaterally and moves all extremities Psychiatric: A+Ox3, euthymic affect Assessment/plan Biliary colic Elevated liver enzymes Patient presented with intermittent abdominal pain on right upper quadrant and epigastric region Gallbladder after ultrasound showed cholelithiasis with no signs of acute cholecystitis. CT abdomen pelvis showed 2.2 and 1.9 hypodense lesion within the body of gallbladder; could be calculus/polyp. AST/ALT elevated with total bilirubin of 1.1. Surgery on board; plan to obtain MRCP today. Possible laparoscopic cholecystectomy. GI consulted as per recommendation by surgery for elevated liver enzymes Hypothyroidismcontinue levothyroxine History of hiatal herniastarted on Protonix Please note the above document was generated using voice recognition software. It may contain grammatical, syntax or spelling errors. Any formal questions or concerns about the content, text or information contained within the body of this dictation should be directly addressed to the provider for clarification
--- NOTE | 2024-09-03 20:11 | Magnetic Resonance Report ---
Exam(s): MRI MRCP EXAM: MR Abdomen Without Intravenous Contrast, MRCP Protocol CLINICAL HISTORY: Reason for exam: elevated LFTs. TECHNIQUE: Multiplanar magnetic resonance images of the abdomen without intravenous contrast using MRCP protocol. COMPARISON: CT abdomen and pelvis, Gallbladder ultrasound 09/03/24 FINDINGS: Lung bases appear clear. There is cholelithiasis and mild gallbladder sludge without gallbladder wall thickening or pericholecystic inflammatory change. There is no biliary dilatation. Common bile duct measures 4 mm. There is no evidence of choledocholithiasis. Liver, spleen, pancreas, adrenal glands, and kidneys are unremarkable. 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 Aorta is normal in caliber. Bowel gas pattern is nonobstructive. Skeleton appears unremarkable. IMPRESSION: 1. Cholelithiasis and mild gallbladder sludge without findings of acute cholecystitis, biliary dilatation, or choledocholithiasis. 2. 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 Electronically signed by: Chio Sterling M.D. 09/03/24 20:09 PM
[2024-09-04 05:27] LABS: EAG mg/dl 111 mg/dL; EAG mmol/L 6.2 mmol/L; HA1C 5.5 (<5.7)
[2024-09-04] MEDS ORDERED: GLYCOPYRROLATE 0.2 MG/ML VIAL ONE (07:13)
[2024-09-04] MEDS ORDERED: NEOSTIGMINE METHYLSULFATE 1 MG/ML 10ML VIAL ONE (07:13)
[2024-09-04] MEDS ORDERED: ONDANSETRON INJ 2 MG/ML 2 ML VIAL ONE (07:13)
[2024-09-04] MEDS ORDERED: PROPOFOL IV EMULSION 10 MG/ML 20 ML VIAL IV ONE (07:13)
[2024-09-04] MEDS ORDERED: DEXAMETHASONE SOD INJ 4 MG/ML VIAL ONE (07:13)
[2024-09-04] MEDS ORDERED: ROCURONIUM BROMIDE 10 MG/ML 5 ML VIAL IV ONE (07:13)
[2024-09-04] MEDS ORDERED: LIDOCAINE 2% 2 ML VIAL/AMP(20MG/ML) INFIL ONE (07:13)
[2024-09-04] MEDS ORDERED: fentaNYL citrate PF 100 MCG/2 ML VIAL ONE ×2 (07:14)
[2024-09-04] MEDS ORDERED: MIDAZOLAM HCL 1 MG/ML 2ML VIAL ONE (07:14)
--- NOTE | 2024-09-04 07:15 | Anesthesiology Consultation ---
Date of Service September 04, 2024 History Surgery Operation Date: 09/04/24 08:30 Proposed Procedures p Robotic Laparoscopic Cholecystectomy - Jackson Alas, , FACS Height/Weight Height: 5 ft 6.93 in Weight: 91 kg Allergies Allergy/AdvReac Type Severity Reaction Status Date / Time No Known Allergies Allergy Unverified 09/03/24 05:54 Medications Home Medications Medication Instructions Recorded Confirmed Last Taken Centrum Adult 50 Plus See Rx Instructions .Route .COMPLEX 09/03/24 09/03/24 1 Day Ago ~09/02/24 calcium 500 mg 1 tab PO 1XD 09/03/24 09/03/24 1 Day Ago (carb,gluconate)-magnesium 250 mg ~09/02/24 (gluc,oxide) tablet (Calcium Magnesium) levothyroxine 50 mcg tablet 50 mcg PO 1XD 09/03/24 09/03/24 1 Day Ago ~09/02/24 Active Medications Generic Name Dose Route Start Last Admin Trade Name Dreq PRN Reason Stop Dose Admin Levothyroxine Sodium 50 mcg 09/03/24 11:30 09/04/24 07:00 Levothyroxine Sodium 50 Mcg Tablet PO 10/03/24 11:29 50 mcg DAILYBB SIERRA Administration Multivitamins 1 tab 09/03/24 09:00 09/04/24 07:17 Multivitamin Tab PO 10/03/24 08:59 Not Given QAM SIERRA Pantoprazole Sodium 40 mg 09/04/24 09:00 09/04/24 07:17 Pantoprazole 40 Mg Tab PO 10/04/24 08:59 Not Given QAM SIERRA NPO Date Last Intake of Fluids: 09/03/24 Time Last Intake of Fluids: 23:00 Last Intake of Fluids Comment: sip of water with Synthroid this AM Date Last Intake of Solids: 09/03/24 Time Last Intake of Solids: 19:00 Social History Smoking Status: Never smoker Hx Alcohol Use: No Hx Substance Use: No Physical Exam Vital Signs Last Vital Signs Temp 36.7 C 09/04/24 07:43 Pulse 70 09/04/24 07:43 Resp 20 09/04/24 07:43 BP 110/76 09/04/24 07:43 Pulse Ox 96 09/04/24 07:43 O2 Del Method Room Air 09/04/24 07:43 Testing Laboratory Results 09/03/24 02:17 09/03/24 02:17 PT 10.3 Seconds (9.0-12.0) 09/03/24 02:17 INR 0.9 (0.9-1.1) 09/03/24 02:17 Hemoglobin A1c 5.5 (<5.7) 09/03/24 02:17 Hemoglobin A1c TNP 09/03/24 02:17 Electrocardiogram Date: 09/03/24 Normal sinus rhythm Normal ECG No previous ECGs available Confirmed by Jose Webb ([id number]) on 09/03/2024 7:35:55 AM
[2024-09-04] MEDS: PANTOprazole 40 MG TAB PO SCH (07:17)
--- NOTE | 2024-09-04 07:38 | Surgery Progress Note ---
Date of Service September 04, 2024 Assessment & Plan (1) Cholelithiasis: Plan: Cholelithiasis with suspected cholecystitis, MRCP negative for choledocholithiasis. Labs pending this morning plan for robotic assisted laparoscopic cholecystectomy with possible cho langiogram risks discussed to include but not limited to bleeding, infection, retained stone, bile leak, open surgery, damage to surrounding structures including bile duct, need for future or more extensive surgery, failure to treat symptoms, and risks of anesthesia. (2) Transaminitis: Admission and Anticipated Discharge Date Admission Date: September 03, 2024 Subjective Admitted with cholelithiasis with mild elevation in his transaminitis, MRCP negative yesterday. Still had pain yesterday Physical Exam Physical Exam: awake/alert, no distress Gastrointestinal (Abdomen): Percussion/Palpation: + abdomen tender (epigastric discomfort to palpation ) and abdomen soft Results & Data Vital Signs (Past 12 Hours) Vital Signs Temp Pulse Resp BP Pulse Ox O2 Del Method 09/03/24 19:44 36.6 C 65 18 123/79 94 Room Air Diagnostic Findings Cholangiopancreatography MRI 09/03/24 13:00 Exam(s): MRI MRCP EXAM: MR Abdomen Without Intravenous Contrast, MRCP Protocol CLINICAL HISTORY: Reason for exam: elevated LFTs. TECHNIQUE: Multiplanar magnetic resonance images of the abdomen without intravenous contrast using MRCP protocol. COMPARISON: CT abdomen and pelvis, Gallbladder ultrasound 09/03/24 FINDINGS: Lung bases appear clear. There is cholelithiasis and mild gallbladder sludge without gallbladder wall thickening or pericholecystic inflammatory change. There is no biliary dilatation. Common bile duct measures 4 mm. There is no evidence of choledocholithiasis. Liver, spleen, pancreas, adrenal glands, and kidneys are unremarkable. 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 Aorta is normal in caliber. Bowel gas pattern is nonobstructive. Skeleton appears unremarkable. IMPRESSION: 1. Cholelithiasis and mild gallbladder sludge without findings of acute cholecystitis, biliary dilatation, or choledocholithiasis. 2. 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 Electronically signed by: Chio Sterling M.D. 09/03/24 20:09 PM PG Care Time/CCT Total # of Minutes Spent Total Time Spent with Patient: Total time spent is greater than 50% in coordination of care (as documented) at patient's floor/unit and/or counseling patient: Coding Level of Care Code 55243 SUB INP/OBS CARE MIN Diagnoses Calculus of gallbladder with acute on chronic cholecystitis without obstruction K80.12 Cholelithiasis location: gallbladder Cholecystitis presence: with cholecystitis Cholecystitis acuity: acute and chronic Biliary obstruction: without biliary obstruction Transaminitis R74.01 (1) Cholelithiasis Cholelithiasis location: gallbladder Cholecystitis presence: with cholecystitis Cholecystitis acuity: acute and chronic Biliary obstruction: without biliary obstruction Qualified Code(s): K80.12 - Calculus of gallbladder with acute and chronic cholecystitis without obstruction
[2024-09-04] MEDS ORDERED: ONDANSETRON INJ 2 MG/ML 2 ML VIAL IV PRN (07:56)
[2024-09-04] MEDS ORDERED: ATROPINE SULFATE 0.1 MG/ML 10ML SYR IV PRN (07:56)
[2024-09-04] MEDS ORDERED: ePHEDrine sulfate 50 MG/ML AMP IV PRN (07:56)
[2024-09-04] MEDS: LACTATED RINGER'S 1,000 ML IV SCH (08:13)
[2024-09-04] MEDS: INDOCYANINE GREEN 25 MG VIAL INJ ONE (08:29)
[2024-09-04] MEDS: cefOXitin 2,000 MG in DEXTROSE 5 % MINI-B 50 ML IV SCH (08:43)
[2024-09-04] MEDS ORDERED: SUGAMMADEX SODIUM 200 MG/2 ML VIAL IV ONE ×2 (09:25→09:53)
--- NOTE | 2024-09-04 09:35 | Hospitalist Progress Note ---
Date of Service September 04, 2024 Assessment & Plan (1) Abdominal pain: Plan: Assessment/plan Biliary colic Elevated liver enzymes Patient presented with intermittent abdominal pain on right upper quadrant and epigastric region Gallbladder after ultrasound showed cholelithiasis with no signs of acute cholecystitis. CT abdomen pelvis showed 2.2 and 1.9 hypodense lesion within the body of gallbladder; could be calculus/polyp. AST/ALT elevated with total bilirubin of 1.1 MRCP does not show concern of choledocholithiasis Status post robotic laparoscopic cholecystectomy on 09/04/2024 Started on clear liquid diet; advance as tolerated Pain control Bowel regimen Hypothyroidismcontinue levothyroxine History of hiatal herniastarted on Protonix Full code DVT prophylaxis SCDs Please note the above document was generated using voice recognition software. It may contain grammatical, syntax or spelling errors. Any formal questions or concerns about the content, text or information contained within the body of t his dictation should be directly addressed to the provider for clarification Admission and Anticipated Discharge Date Admission Date: September 03, 2024 Subjective Patient seen and examined at bedside After the OR. He was sleeping; arousable by voice. Vital signs stable Review of Systems Review of Systems: All systems reviewed & are unremarkable except as noted in Subjective Physical Exam Physical Exam: Constitutional: comfortable; easily arousable by voice. not in any distress Respiratory: Bilateral vesicular breath sound. Cardiovascular: RRR, no murmur, no edema Vessels: no JVD or carotid bruit Chest: normal inspection of chest Abdomen: incision intact, no soakage/drainage. Musculoskeletal: no cyanosis or clubbing, extremities motor strength 5/5 Skin: no rashes, warm and dry normal turgor Neurologic: PERRL, EOMI, accommodation nl, no face palsy, no dysarthria CN's II- XI intact bilaterally and moves all extremities Results & Data Results & Data Vital Signs (Past 12 Hours) Vital Signs Temp Pulse Resp BP Pulse Ox O2 Del Method 09/04/24 07:43 36.7 C 70 20 110/76 96 Room Air (1) Abdominal pain Abdominal location: upper abdomen, unspecified Qualified Code(s): R10.10 - Upper abdominal pain, unspecified
[2024-09-04] MEDS: BUPIVACAINE 0.5 % 5 MG/1 ML MPF 30ML VIAL ONE (09:47)
--- NOTE | 2024-09-04 09:57 | Operative Report ---
PG Post Operative Report Pre & Post Diagnosis Operation Date: 09/04/24 08:30 Pre-Op Diagnosis: Cholelithiasis Post-Op Diagnosis: Cholelithiasis, chronic cholecystitis I identified the patient and participated in the time-out.: Yes Procedure Operation Date: 09/04/24 08:30 Actual Procedures p Robotic Laparoscopic Cholecystectomy(Not Applicable) - Jackson Alas DO, FACS Surgeon Jackson Alas DO, FACS Radio Program Director None Estimated Blood Loss 5 Findings Consistent with Post-Op Diagnosis Large gallstone in infundibulum, mild chronic cholecystitis. Critical view of safety obtained, cystic duct and artery doubly clipped and divided. Specimens Gallbladder Anesthesia Type General Complications none Disposition Accompanied Patient To Recovery: No Disposition: Recovery Room Description of Procedure The patient was properly identified, consented, and taken to the operating room where he was placed in the supine position. 2.5 mg of indocyanine green were administered IV approximately 45 min prior to the surgery. General endotracheal anesthesia was induced. SCDs and a safety belt were placed. Preoperative antibiotics were administered. The patient's abdomen was prepped and draped in the standard sterile fashion. A surgical timeout was performed and all parties were in agreement that this was the correct patient and procedure to be performed and we continued as planned. An incision was made just above the umbilicus and to the right of midline. Veress needle was inserted and saline drop test confirmed entry to the abdomen. The abdomen was insufflated with carbon dioxide which the patient tolerated incident. Veress needle was removed and the abdomen is entered using the Optiview technique and a 5 mm camera. The introducer was removed and the abdomen inspected. No damage from initial trocar placement or Veress needle placement was identified. There were no significant abnormalities to the 4 quadrants of the abdomen. 8 mm robotic ports were then placed on the right, and 2 in the left upper quadrant. The patient was placed in reverse Trendelenburg position and rotated towards the left. The robot was then docked and the camera and robotic instruments were inserted. The gallbladder was mildly and chronically inflamed. The dome of the gallbladder was grasped by the accounting administrative assistant and retracted towards the left upper quadrant and the infundibulum was retracted toward the right lower quadrant revealing Calot's triangle. Peritoneal attachments were taken down with electrocautery and blunt dissection. The cystic duct and artery were circumferentially dissected. A window of safety was obtained showing the cystic duct entering the gallbladder with no aberrant structures noted. We were able to identify the cystic duct utilizing the ICG. There was a large gallstone in the infundibulum. The cystic duct and artery were doubly clipped and divided. The gallbladder was then lifted off the gallbladder fossa with electrocautery. The right upper quadrant was irrigated and hemostasis was found to be good. The gallbladder was placed in an Endo Catch bag and removed through the left upper quadrant port site. The skin and fascial incisions had to be extended to accommodate the large stone. The fascia was closed with a [id number] 0 Vicryl suture utilizing the Charanjit-Neptali device. The instruments were removed and the robot was undocked. The trochars were removed and the abdomen was allowed to collapse. The skin of all ports was closed with 4-0 Monocryl subcuticular sutures. Dermabond was placed over the wounds. The patient was extubated in the operating room and taken to the PACU where he recovered without apparent incident. All sponge, instrument and needle counts were correct at the conclusion of the procedure. The patient tolerated the procedure well. I attest to the content of the Intraoperative Record and any orders documented therein. Any exceptions are noted below.
[2024-09-04] MEDS: fentaNYL citrate PF 100 MCG/2 ML VIAL IV PRN (10:08)
[2024-09-04] MEDS ORDERED: oxyCODONE HCL IR 5 MG TAB (IMMEDIATE RELEASE) PO PRN (10:47)
[2024-09-04] MEDS ORDERED: MoRPHine SULFATE 4 MG/ML 1 ML CARP\\VIAL IV PRN (10:47)
[2024-09-04 11:06] LABS: Basophils # (auto) 0.05 K/uL (0.00-0.20); Basophils % (auto) 0.5 %; Eosinophils % (auto) 0.9 %; Hematocrit (blood only) 44.2 % (42.0-52.0); Hemoglobin 14.8 g/dl (14.0-18.0); Immature Granulocytes # (auto) 0.07 K/uL (0.01-0.20); Immature Granulocytes % (auto) 0.7 %; Lymphocytes # (auto) 1.41 K/uL (1.20-3.40); Lymphocytes % (auto) 13.3 %; Mean Corpuscular Hemoglobin 28.4 pg (25.0-34.0); Mean Corpuscular Hgb Conc 33.5 g/dL (32.0-36.0); Mean Corpuscular Volume 84.8 fL (80.0-100.0); Mean Platelet Volume 10.6 fL (9.4-12.4); Monocytes # (auto) 0.25 K/uL (0.11-0.59); Monocytes % (auto) 2.4 %; Neutrophils # (auto) 8.75 K/uL (1.40-6.50); Neutrophils % (auto) 82.2 %; Platelet Count 178 K/uL (130-400); RDW Coefficient of Variation 13.4 % (11.5-14.5); RDW Standard Deviation 41.5 fL (36.4-46.3); Red Blood Count 5.21 M/uL (4.70-6.10); White Blood Count 10.63 K/ul (4.8-10.8)
--- NOTE | 2024-09-04 11:13 | Anesthesiology Progress Note ---
Date of Service September 04, 2024 Anesthesia Post Procedure Vital Signs Vital Signs: Temp Pulse Pulse Pulse Pulse Resp BP 09/04/24 10:59 09/04/24 10:50 36.7 C 65 14 09/04/24 10:35 36.4 C L 63 12 09/04/24 10:30 65 14 09/04/24 10:20 67 16 09/04/24 10:10 67 12 09/04/24 10:05 09/04/24 10:02 36.3 C L 78 16 09/04/24 07:43 36.7 C 70 20 09/03/24 19:44 36.6 C 65 18 09/03/24 13:30 36.5 C 60 18 09/03/24 13:30 36.5 C 60 18 09/03/24 12:57 59 L 16 09/03/24 11:21 63 17 122/78 BP BP Pulse Ox O2 Del Method O2 Flow Rate 09/04/24 10:59 Nasal Cannula 2 09/04/24 10:50 151/96 H 94 Room Air 09/04/24 10:35 158/98 H 98 Nasal Cannula 2 09/04/24 10:30 145/98 H 98 Nasal Cannula 2 09/04/24 10:20 153/108 H 97 Oxymask 2 09/04/24 10:10 152/103 H 98 Oxymask 14 09/04/24 10:05 138/91 09/04/24 10:02 117/100 93 Oxymask 14 09/04/24 07:43 110/76 96 Room Air 09/03/24 19:44 123/79 94 Room Air 09/03/24 13:30 125/78 96 Room Air 09/03/24 13:30 125/78 96 Room Air 09/03/24 12:57 126/78 98 Room Air 09/03/24 11:21 96 Room Air Pain Intensity Upper Abdomen: Pain Intensity: 3 Abdomen: Pain Intensity: 4 Transfer of Care Handoff Completed per policy Notes Mental Status: alert / awake / arousable and participated in evaluation Patient Amnestic to Procedure: Yes Nausea / Vomiting: adequately controlled Pain: adequately controlled Airway Patency, RR, SpO2: stable & adequate BP & HR: stable & adequate Hydration State: stable & adequate Anesthetic Complications: no major complications apparent and Pt Satisfied with anesthetic care
[2024-09-04 11:27] LABS: Albumin Globulin Ratio 1.3 (0.9-2); Albumin Level 4.3 gm/dl (3.4-5.0); BUN Creatinine Ratio 8.7 (10-20); Bilirubin,Total 0.6 mg/dl (0.2-1.0); Calcium 9.2 mg/dl (8.6-10.3); Creatinine Clr Calc Pharmacy 87.2 ml/min; Globulin 3.2 gm/dl (2.5-4.0); Potassium 4.5 mmol/L (3.5-5.1); Total Protein 7.5 gm/dl (6.0-8.3)
[2024-09-04] MEDS ORDERED: SUCCINYLCHOLINE CHLORIDE 20 MG/ML 10 ML VIAL IV ONE (11:31)
[2024-09-04] MEDS: MoRPHine SULFATE 2 MG/ML CARP IV PRN (12:52)
[2024-09-04] MEDS: oxyCODONE HCL IR 5 MG TAB (IMMEDIATE RELEASE) PO PRN (16:48)
[2024-09-04] MEDS: ALUMINUM/MAGNESIUM SUSP 30 ML UDC PO STA (16:48)
[2024-09-04 19:05] VITALS: RESP 18
[2024-09-04] MEDS: INFLUENZA VACC TS2024-25(6m+)/PF (IIV3) 0.5mL Syr IM ONE (19:17)
[2024-09-04] MEDS: ACETAMINOPHEN 500 MG TAB PO PRN (23:05)
[2024-09-05] MEDS ORDERED: cefOXitin 2,000 MG in DEXTROSE 5 % MINI-B 50 ML IV SCH (06:00)
[2024-09-05 07:43] LABS: Basophils # (auto) 0.01 K/uL (0.00-0.20); Basophils % (auto) 0.1 %; Eosinophils # (auto) 0.01 K/uL (0.00-0.50); Eosinophils % (auto) 0.1 %; Hemoglobin 13.3 g/dl (14.0-18.0); Immature Granulocytes # (auto) 0.04 K/uL (0.01-0.20); Immature Granulocytes % (auto) 0.4 %; Lymphocytes # (auto) 1.58 K/uL (1.20-3.40); Lymphocytes % (auto) 15.5 %; Mean Corpuscular Hemoglobin 28.5 pg (25.0-34.0); Mean Corpuscular Hgb Conc 34.1 g/dL (32.0-36.0); Mean Corpuscular Volume 83.5 fL (80.0-100.0); Monocytes # (auto) 0.63 K/uL (0.11-0.59); Monocytes % (auto) 6.2 %; Neutrophils # (auto) 7.94 K/uL (1.40-6.50); Neutrophils % (auto) 77.7 %; Platelet Count 161 K/uL (130-400); RDW Coefficient of Variation 13.5 % (11.5-14.5); RDW Standard Deviation 41.1 fL (36.4-46.3); Red Blood Count 4.67 M/uL (4.70-6.10); White Blood Count 10.21 K/ul (4.8-10.8)
[2024-09-05 07:57] LABS: Albumin Globulin Ratio 1.3 (0.9-2); Albumin Level 3.7 gm/dl (3.4-5.0); Bilirubin,Total 0.7 mg/dl (0.2-1.0); Calcium 8.7 mg/dl (8.6-10.3); Creatinine Clr Calc Pharmacy 109.3 ml/min; Globulin 2.9 gm/dl (2.5-4.0); Total Protein 6.6 gm/dl (6.0-8.3)
[2024-09-05] MEDS: MAGNESIUM HYDROXIDE SUSP 30 ML UDC PO ONE (07:59)
[2024-09-05] MEDS: POLYETHYLENE (MIRALAX) 17 GM PACK PO SCH (07:59)
[2024-09-05 08:48] VITALS: TEMP 98.6; O2SAT 93
--- NOTE | 2024-09-05 09:57 | Discharge Summary ---
Date of Service September 05, 2024 Admission HPI Per Admitting Provider History obtained from patient and records. Patient is a resident of [place], [place] who has been in town the last 10 days to visit his daughter who is a [employer] grad student. Medical history significant for hypothyroidism. One year history of intermittent right upper quadrant pain usually worse after eating and fatty food intake. No fever no chills. Symptoms spontaneously resolving. Different from heartburn. No consultations done. Symptoms more frequent of late as per patient. Last night, episode more intense and protracted. No fever, no chills. No chest pain, no SOB. Patient consulted ER for evaluation. 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 [place] Admission Exam Per Admitting Provider GENERAL: Comfortable, obese, pleasant, no respiratory distress SKIN: Normal color, warm HEENT: Alopecia, Clint palpebral conjunctivae, no ptosis, dry buccal mucosa NECK : Supple, no tenderness CHEST : CTA, no tenderness HEART : RRR, no obvious murmurs ABDOMEN: Some distention, epigastric tenderness EXTREMITIES : No LE swelling/tenderness, no other conspicuous deformities noted NEUROLOGIC : Coherent, no facial asymmetry, no other gross focality Principal Diagnosis Biliary colic status post laparoscopic cholecystectomy Possible gastritis Discharge Exam Constitutional: Alert oriented x 3; not in distress. Respiratory: Bilateral vesicular breath sound. Cardiovascular: RRR, no murmur, no edema Vessels: no JVD or carotid bruit Chest: normal inspection of chest Abdomen: incision intact, no soakage/drainage. Musculoskeletal: no cyanosis or clubbing, extremities motor strength 5/5 Skin: no rashes, warm and dry normal turgor Neurologic: PERRL, EOMI, accommodation nl, no face palsy, no dysarthria CN's II- XI intact bilaterally and moves all extremities Discharge Data Allergies Allergy/AdvReac Type Severity Reaction Status Date / Time No Known Allergies Allergy Unverified 09/03/24 05:54 Consultations 09/03/24 06:12 Consult General Surgery Stat 09/03/24 06:46 ED Decision to Admit Stat 09/03/24 11:46 Consult Gastroenterology Routine Procedures Performed Operation Date: 09/04/24 08:30 Actual Procedures p Robotic Laparoscopic Cholecystectomy(Not Applicable) - Jackson Alas DO, FACS Ordered Studies 09/03/24 02:54 US abdomen limited Stat 09/03/24 05:14 CT abd pelvis IV con only Stat 09/03/24 13:00 MR MRCP Urgent Hospital Course (1) Abdominal pain: Assessment/plan Biliary colic Elevated liver enzymes Patient presented with intermittent abdominal pain on right upper quadrant and epigastric region Gallbladder after ultrasound showed cholelithiasis with no signs of acute cholecystitis. CT abdomen pelvis showed 2.2 and 1.9 hypodense lesion within the body of gallbladder; could be calculus/polyp. AST/ALT elevated on admission MRCP does not show concern of choledocholithiasis Status post robotic laparoscopic cholecystectomy on 09/04/2024 Patient was observed in postoperative period; he was comfortable and he was able to tolerate regular diet. He was discharged with instructions to follow-up with surgery. He was also prescribed Protonix to be taken twice daily for possible gastroenteritis seen in the CT abdomen/pelvis. I asked patient to follow-up with PCP and obtain GI referral as outpatient. Please note the above document was generated using voice recognition software. It may contain grammatical, syntax or spelling errors. Any formal questions or concerns about the content, text or information contained within the body of this dictation should be directly addressed to the provider for clarification Total Time Total Time Spent Total Time Spent (In Minutes): 35 Total Time Includes: Examination of the Patient, Discharge Planning, Medication Reconciliation, Communication With Other Providers and Other Discharge Plan Discharge Items Patient Disposition: Home - Self-Care Reason For Visit: ABD PAIN Discharge Diagnosis: cholecystectomy Activity: Per Instructions section Lifting: No more than 10 pounds Bathing Comment: may shower; no soaking in tubs/pools x 2 weeks Exercise/Sports: Wait until after follow-up appointment Driving/Machine Use: no driving while taking narcotics for pain Non-emergency contact: Surgeon Call non-emergency contact if: you have any medication questions, your pain is not controlled, you have a fever, your temperature is above 101.5, your wound has increased redness, your wound has increased drainage and your wound pain has increased Follow-up/Referrals: Jackson Alas DO, FACS [Physician] - 09/18/24 11:15 am (please call to schedule follow up in clinic within 2 weeks) Yobany Aponte MD [Outside Practitioners] - (Date & Time 09/12/2024 11:00 AM Provider Yobany Aponte MD Department [facility] ) Nasreen Milner MD [Primary Care Provider] - Diet: Regular Addtl Attending Provider Instructions: You were admitted to the hospital due to biliary colic; you underwent surgery by Dr. Alas. Please follow-up with him as scheduled above. Please take Tylenol 500 mg every 6 hours as needed for pain. If your pain is very severe; take oxycodone as needed. You are prescribed Protonix 40 mg to be taken twice daily. Please use it twice daily for 4 weeks; then you can take it once a day. SPECIAL CARE INSTRUCTIONS: * You have skin glue over your incisions called dermabond. you may shower with this on. It will tend to dissolve and fall off within a couple weeks. Do not pick at the skin glue * You may shower . NO soaking in pools or baths for 2 weeks * No lifting greater than 10lbs. No strenuous exercise until cleared by surgeon. Light walking is accepted. * No driving while taking narcotic pain medication; wait at least 3 days * No drinking alcohol while taking narcotic pain medication * May use Ibuprofen/Tylenol over the counter for pain as tolerated. Do not exceed 3grams of Tylenol per 24 hours * Expect some swelling and bruising. * Diet- you may resume your regular diet Call your doctor if: * Temperature above 101 degrees, nausea/vomiting, fever/chills * Pain not relieved by pain medicine ordered * There is increased drainage or redness from any incision * You have any unanswered questions or concerns [phone]. FOLLOW UP VISIT: If not already scheduled, please call the office for a follow-up visit. Office Pending Studies at Discharge: Yes Studies:: surgical pathology Stand-Alone Forms: My e[employer], Pain - Opioid Pain Management, Smoking Cessation Medications and DC Order Prescriptions: New acetaminophen [Tylenol Extra Strength] 500 mg Tablet 500 mg PO Q6H PRN (Reason: pain) Qty: 30 0RF pantoprazole 40 mg Tablet,Delayed Release (Dr/Ec) 40 mg PO BID 30 Days Qty: 90 0RF oxycodone 5 mg Tablet 5 mg PO DAILY PRN (Reason: pain) Qty: 10 0RF Continued levothyroxine 50 mcg tablet 50 mcg PO 1XD Calcium Magnesium 500 mg calcium- 250 mg Tablet 1 tab PO 1XD Centrum Adult 50 Plus tablet See Rx Instructions .ROUTE .COMPLEX Rx Instructions: Multivitamin unsure of dosage. 1 tab PO daily Discharge Orders: Discharge Order (Routine); Ordered 09/05/24 Ordered By: Estevan Blanco/Other Patient Handouts: Cholecystectomy Admission Data Admit Date/Time: 09/03/24 07:26 Attending Provider: Estevan Oglesby Admit Provider: Joel Goldstein Primary Care Provider: Nasreen Milner Other Providers: Jackson Alas; Joel Goldstein; Pascual Curran Other Interventions: Discharge Summary Assessment (RN) Last Done: 09/05/24 10:24
[2024-09-05 10:25] VITALS: BP 129/80; PULSE 59
--- NOTE | 2024-09-05 10:55 | Surgery Progress Note ---
Date of Service September 05, 2024 Assessment & Plan (1) S/P laparoscopic cholecystectomy: Plan: pod 1 lap leanna tolerating diet no f/c , wbc wnl lft downtrending dermabond CDI stable for d/c from our standpoint f/u o/p 2 weeks Admission and Anticipated Discharge Date Admission Date: September 03, 2024 Supervising Physician Co-Signing Physician Notes Patient discussed with ZACH Woods, labs reviewed, agree with above. POD #1 robotic cholecystectomy, doing well. Tolerating diet. Exam benign per nurse practitioner. Downtrending LFTs, WBC normal. Patient discharged already, follow-up with me in 2 weeks. Return precautions, wound care instructions, activity restrictions were reviewed preoperatively yesterday. Subjective pt denies abd pain , n/v , passing flatus Review of Systems Respiratory: no dyspnea Cardiovascular: no chest pain Gastrointestinal: no abdominal pain, no nausea and no vomiting Musculoskeletal: no muscle weakness Physical Exam Constitutional: cooperative and comfortable; no acute distress Respiratory: normal respiratory effort; no respiratory distress Cardiovascular: Rate/Rhythm: regular rate Gastrointestinal (Abdomen): Inspection/Auscultation: abdomen not distended Percussion/Palpation: abdomen soft Psychiatric: A+Ox3, euthymic affect Results & Data Vital Signs (Past 12 Hours) Vital Signs Temp Pulse Pulse Resp BP BP Pulse Ox 09/05/24 10:24 98.6 F 59 L 76 18 129/80 115/76 93 09/05/24 08:44 98.6 F 76 18 115/76 93 09/05/24 03:00 97.9 F 68 18 133/79 94 09/04/24 23:03 99.0 F 85 18 119/77 95 O2 Del Method 09/05/24 10:24 09/05/24 08:44 Room Air 09/05/24 03:00 Room Air 09/04/24 23:03 Room Air PG Care Time/CCT Total # of Minutes Spent Total Time Spent with Patient: Total time spent is greater than 50% in coordination of care (as documented) at patient's floor/unit and/or counseling patient: Coding Level of Care Code 99974 Post Operative Follow-Up Diagnoses S/P laparoscopic cholecystectomy Z90.49
== END 2024-09-05 11:51 | disposition home or self-care (01) ==
LOC: EDINP 02:03 → ED 02:03 → 3N 11:21